=== PATIENT | male | born 1980 | race Caucasian/White ===

== ENCOUNTER 2019-11-29 12:07 | Emergency (ER) | payer BC, OTHER ==
[~2019-11-29] VITALS: Ht 188 cm; Wt 124.7 kg
--- NOTE | 2019-11-29 12:33 | NUR ---
SEEN AND EXAMINE BY CELINA DOUGLAS.
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
--- NOTE | 2019-11-29 12:47 | NUR ---
BELONGINGS IN [facility]
--- NOTE | 2019-11-29 12:54 | NUR ---
BLOOD COLLECTED AND SENT WITH BASKET HAND BRAIDER
[2019-11-29] MEDS ORDERED: IV NS 0.9% 1,000 ML BAG IV ONE ×3 (13:00→17:30)
[2019-11-29 13:01] LABS: BASOPHILS # (AUTO) 0.2 /CMM (0.0-0.2); BASOPHILS % (AUTO) 1.4 % (0.0-2.0); EOSINOPHILS % (AUTO) 1.1 % (0.0-6.0); HEMATOCRIT 47 % (39-51); LYMPHOCYTES # (AUTO) 1.2 /CMM (0.8-4.8); LYMPHOCYTES % (AUTO) 8.5 % (20.0-44.0); MEAN CORPUSCULAR HGB CONC 34 g/dl (31.0-36.0); MEAN CORPUSCULAR VOLUME 89 fL (80-96); MONOCYTES # (AUTO) 0.6 /CMM (0.1-1.30); NEUTROPHILS # (AUTO) 11.7 /CMM (1.8-8.9); PLATELET COUNT (AUTO) 267 /CMM (150-450); RED BLOOD CELL COUNT(AUTO) 5.23 MIL/uL (4.5-6.0); WHITE BLOOD COUNT (AUTO) 13.7 K/uL (4.3-11.0)
[2019-11-29 13:06] LABS: CALCIUM, SERUM 9.6 mg/dL (8.5-10.1); CARBON DIOXIDE 26 mmol/L (21-32); CHLORIDE 100 mmol/L (98-107); CREATININE 1.7 mg/dL (0.6-1.3); GLUCOSE 271 mg/dL (74-106); POTASSIUM 3.9 mmol/L (3.5-5.1); SODIUM SERUM 138 mmol/L (136-145); UREA NITROGEN, BLOOD 13 mg/dL (7-18)
--- NOTE | 2019-11-29 13:06 | NUR ---
UNABLE TO COLLECT URINE AT THIS TIME.
[2019-11-29 13:10] LABS: ACETAMINOPHEN < 2 ug/ml (10-30); ALANINE AMINOTRANSFERASE 32 U/L (12-78); ALBUMIN 4.4 g/dL (3.4-5.0); ALKALINE PHOSPHATASE 77 U/L (46-116); ASPARTATE AMINOTRANSFERASE 32 U/L (15-37); BILIRUBIN,DIRECT 0.2 mg/dL (0.0-0.2); BILIRUBIN,TOTAL 0.7 mg/dL (0.2-1.0); SALICYLATE 4.1 mg/dL (2.8-20.0); TOTAL PROTEIN, SERUM 8.1 g/dL (6.4-8.2)
--- NOTE | 2019-11-29 13:30 | NUR ---
PT STATES, "I DRANK 9 CUP OF CAPPUCINO AND HAVEN'T SLEPT FOR 3 DAYS." I HAVE BEEN SMOKING MARIJUANA SINCE THE s."
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
--- NOTE | 2019-11-29 13:34 | NUR ---
UNABLE TO COLLECT URINE AT THIS TIME
[2019-11-29] MEDS ORDERED: LIDOCAINE 2% JEL UROJET 10 ML MM ONE ×2 (13:58→14:00)
--- NOTE | 2019-11-29 14:10 | NUR ---
URINE COLLECTED AND SENT TO LAB
[2019-11-29 14:13] LABS: APPEARANCE,URINE Clear (CLEAR); BILIRUBIN,URINE SMALL (NEGATIVE); BLOOD, URINE Negative Ery/uL (NEGATIVE); COLOR,URINE Yellow (YELLOW); KETONES,URINE 15 (NEGATIVE); LEUKOCYTE ESTERASE ,URINE Negative (NEGATIVE); NITRITE, URINE Negative (NEGATIVE); PROTEIN,URINE 100 mg/dl (NEGATIVE); UGLUCOSE 500 MG/DL mg/dL (NEGATIVE); UROBILINOGEN,URINE 0.2 EU/dL (0.2)
[2019-11-29 14:18] LABS: BACTERIA,URINE Rare /HPF (None Seen); RBC,URINE NONE SEEN /HPF (0-2); SQUAMOUS EPITHELIAL CELL,UR Few /HPF (None Seen); WBC,URINE NONE SEEN /HPF (0-3)
--- NOTE | 2019-11-29 14:33 | NUR ---
[employer] OFFICER SIGNED [id number] FOR PT
[2019-11-29] MEDS ORDERED: INSULIN REGULAR, HUMAN 100 UNIT/ML 10 ML VIAL SQ ONE (15:00)
[2019-11-29] MEDS ORDERED: INSULIN REGULAR, HUMAN 100 UNIT/ML 10 ML VIAL ONE (15:02)
--- NOTE | 2019-11-29 17:08 | NUR ---
PAGED MEDICAL OFFICE CLERK.
--- NOTE | 2019-11-29 17:17 | NUR ---
[facility] [employer] PAT[employer]OL OFFICER CALLED ETA 1 HOUR.
--- NOTE | 2019-11-29 18:33 | NUR ---
[facility] [employer] [employer] MANAGER AT BEDSIDE
--- NOTE | 2019-11-29 20:06 | NUR ---
AWAITING CALL BACK FROM [facility] REGARDING PATIENT PLACEMENT. PER YANETH SKIDDER LOADER
[2019-11-29 20:34] VITALS: BP 150/82
--- NOTE | 2019-11-29 20:40 | NUR ---
PT ACCEPTED TO [facility]. DR FRANCIE MORGAN. [address]. [address]. CALL FOR REPORT IN 30 MINS. [phone]. AMBULANCE ETA TO FOLLOW.
--- NOTE | 2019-11-29 20:45 | NUR ---
[facility]N ETA: [id number]. #[id number]
--- NOTE | 2019-11-29 21:03 | NUR ---
REPORT GIVEN TO WILD RODRIGUEZ FROM [facility].
--- NOTE | 2019-11-29 23:18 | NUR ---
[facility] AND TRANSFER RESPONSIBILITY.
== END 2019-11-29 23:20 | disposition short-term general hospital (02) ==
LOC: ER 12:08
DX: R45.851 Suicidal ideations (principal); N17.9 Acute kidney failure, unspecified; F12.10 Cannabis abuse, uncomplicated; F20.9 Schizophrenia, unspecified; M79.642 Pain in left hand; M79.641 Pain in right hand
CPT/HCPCS: 36415; 73130 ×2; 80048; 80076; 80305; 80307; 80329; 81001; 82550; 82962; 85025; 93005; 99285; G0480; J1815; J3490; J7030 ×3; 81000-TC